=== PATIENT | female | born 1960 | race Caucasian/White ===

== ENCOUNTER → 2016-08-18 | Outpatient (CLI) | payer OTHER ==
[~2016-08-18] MED LIST: ACHD5005 PO; BIRTH CONTROL; CEFU250T PO; CIPR-226 PO; CPR500T; ESTRADIOL PO; HYDR-3874 PO; LEVO500T69 PO; LISI20TA PO; NITR-68 PO; Norflex PO; OLME20TA22 PO; TAMS0.4C98 PO; ZLP10T; ZOLP5TAB6 PO
--- OUTSIDE RECORDS SUMMARY | 2016-08-18 15:02 | XMS REPORT | Continuity of Care Document ---
Author Author [facility] Organization [facility] Address Unknown Phone Unavailable Allergies Active Description Code Type Severity Reaction Onset Reported/Identified Relationship to Patient Clinical Status Yes No Known Drug Allergies [id number] Drug Allergy Mild N/A 07/13/2009 Yes nifedipine [id number] Drug Allergy Unknown N/A 10/13/2014 Yes DOXYCYLINE DOXYCYLINE Mild N/A 10/06/2015 Yes meperidine [id number] Drug Allergy Unknown N/A 10/21/2015 Medications Problems Date Dx Coded Attending Type Code Diagnosis Diagnosed By 01/25/2011 Ot 922.1 CONTUSION OF CHEST WALL 01/25/2011 Ot 923.21 CONTUSION OF WRIST 01/25/2011 Ot 959.11 OTH INJURY OF CHEST WALL 01/25/2011 Ot E000.8 OTHER EXTERNAL CAUSE STATUS 01/25/2011 Ot E849.0 ACCIDENT IN HOME 01/25/2011 Ot E885.9 FALL FROM SLIPPING, TRIPPING, OR STUMBLI 05/28/2014 Ot 793.80 05/28/2014 Ot 793.81 05/28/2014 Ot 793.81 05/28/2014 Ot V76.12 05/28/2014 Ot 729.5 05/28/2014 Ot V76.12 05/28/2014 RUBIN PEREZ MD Ot V76.12 06/16/2014 RUBIN PEREZ MD Ot V76.12 10/15/2014 JANELL WAYNE MD Ot 276.51 DEHYDRATION 10/15/2014 TONE SQUIRES, JANELL Velasquez Ot 401.9 HYPERTENSION NOS 10/15/2014 JANELL WAYNE MD Ot 427.89 CARDIAC DYSRHYTHMIAS NEC 10/15/2014 JANELL WAYNE MD Ot 611.0 INFLAM DISEASE OF BREAST 10/15/2014 JANELL WAYNE MD Ot 780.2 SYNCOPE AND COLLAPSE 10/15/2014 JANELL WAYNE MD Ot 780.60 FEVER, UNSPECIFIED 10/15/2014 TONE SQUIRES, JANELL Velasquez Ot 790.5 ABN SERUM ENZY LEVEL NEC 10/15/2014 TONE SQUIRES, JANELL Velasquez Ot 989.5 TOXIC EFFECT VENOM 10/15/2014 TONE SQUIRES, JANELL Velasquez Ot E905.1 VENOMOUS SPIDER BITE 10/30/2014 Ot 793.81 10/30/2014 Ot 793.81 10/30/2014 Ot V76.12 10/30/2014 Ot 729.5 10/30/2014 Ot V76.12 10/30/2014 ANA SQUIRES, RUBIN Morales Ot V76.12 10/30/2014 ANA SQUIRES, RUBIN Morales Ot V76.12 11/22/2014 Ot 793.81 11/22/2014 Ot V76.12 11/22/2014 Ot 729.5 11/22/2014 Ot V76.12 11/22/2014 ANA SQUIRES, RUBIN Morales Ot V76.12 11/22/2014 ANA SQUIRES, RUBIN Morales Ot V76.12 11/22/2014 VIJI ELDRIDGE NAILING MACHINE FEEDER Ot 786.59 02/12/2015 TONE SQUIRES, JANELL Velasquez Ot 719.46 02/23/2015 TONE SQUIRES, JANELL Velasquez Ot 719.46 04/08/2015 REAL SERNA NAILING MACHINE FEEDER Ot R11.0 NAUSEA 04/08/2015 REAL SERNA NAILING MACHINE FEEDER Ot Z98.89 OTHER SPECIFIED POSTPROCEDURAL STATES 06/08/2015 ANA SQUIRES, RUBIN Morales Ot Z12.31 06/23/2015 ANA SQUIRES, RUBIN Morales Ot Z12.31 06/25/2015 REAL SERNA NAILING MACHINE FEEDER Ot N39.0 URINARY TRACT INFECTION, SITE NOT SPECIF 10/06/2015 Ot V76.12 10/06/2015 Ot 729.5 10/06/2015 Ot V76.12 10/06/2015 ANA SQUIRES, RUBIN Morales Ot V76.12 10/06/2015 ANA SQUIRES, RUBIN Morales Ot V76.12 10/06/2015 VIJI ELDRIDGE NAILING MACHINE FEEDER Ot 786.59 10/06/2015 TONE SQUIRES, JANELL Velasquez Ot 719.46 10/06/2015 ANA SQUIRES, RUBIN Morales Ot Z12.31 10/06/2015 RENE DUNLAP DO Ot N13.2 HYDRONEPHROSIS WITH RENAL AND URETERAL C 10/06/2015 RENE DUNLAP DO Ot N39.0 URINARY TRACT INFECTION, SITE NOT SPECIF 10/08/2015 GERMÁN RENE LARKIN Ot N13.2 10/08/2015 RENE DUNLAP DO Ot N39.0 10/13/2015 Ot V76.12 OTH SCREEN MAMMO-MALIGN NEOPLASM OF [place] 10/13/2015 Ot 729.5 PAIN IN LIMB 10/13/2015 Ot V76.12 OTH SCREEN MAMMO-MALIGN NEOPLASM OF [place] 10/13/2015 ANA SQUIRES, RUBIN Morales Ot V76.12 OTH SCREEN MAMMO-MALIGN NEOPLASM OF [place] 10/13/2015 RUBIN PEREZ MD Ot V76.12 OTH SCREEN MAMMO-MALIGN NEOPLASM OF [place] 10/13/2015 VIJI ELDRIDGE N NAILING MACHINE FEEDER Ot 786.59 CHEST PAIN NEC 10/13/2015 JANELL WAYNE MD Ot 719.46 JOINT PAIN-L/LEG 10/13/2015 RUBIN PEREZ MD Ot Z12.31 ENCNTR SCREEN MAMMOGRAM FOR MALIGNANT NE 10/14/2015 ASHLEY HAWKINS MD Ot N20.1 CALCULUS OF URETER 10/21/2015 ASHLEY HAWKINS MD Ot N20.1 CALCULUS OF URETER 10/21/2015 ASHLEY HAWKINS MD Ot Z11.2 ENCOUNTER FOR SCREENING FOR OTHER BACTER 10/22/2015 ASHLEY HAWKINS MD Ot N20.1 CALCULUS OF URETER 10/22/2015 ASHLEY HAWKINS MD Ot Z11.2 ENCOUNTER FOR SCREENING FOR OTHER BACTER 10/22/2015 ASHLEY HAWKINS MD Ot N20.1 CALCULUS OF URETER 10/22/2015 ASHLEY HAWKINS MD Ot Z11.2 ENCOUNTER FOR SCREENING FOR OTHER BACTER 10/27/2015 ASHLEY HAWKINS MD Ot N20.1 CALCULUS OF URETER 10/27/2015 ASHLEY HAWKINS MD Ot Z11.2 ENCOUNTER FOR SCREENING FOR OTHER BACTER 10/29/2015 ASHLEY HAWKINS MD Ot N20.1 CALCULUS OF URETER 10/29/2015 ASHLEY HAWKINS MD Ot Z98.89 OTHER SPECIFIED POSTPROCEDURAL STATES 11/18/2015 ASHLEY HAWKINS MD Ot N20.1 CALCULUS OF URETER 11/18/2015 ASHLEY HAWKINS MD Ot Z11.2 ENCOUNTER FOR SCREENING FOR OTHER BACTER 11/19/2015 ASHLEY HAWKINS MD Ot N20.1 CALCULUS OF URETER 11/19/2015 ASHLEY HAWKINS MD Ot Z11.2 ENCOUNTER FOR SCREENING FOR OTHER BACTER 11/24/2015 ASHLEY HAWKINS MD Ot N20.1 CALCULUS OF URETER 11/24/2015 ASHLEY HAWKINS MD Ot Z11.2 ENCOUNTER FOR SCREENING FOR OTHER BACTER 11/27/2015 ASHLEY HAWKINS MD Ot N20.1 CALCULUS OF URETER 11/27/2015 ASHLEY HAWKINS MD Ot Z98.89 OTHER SPECIFIED POSTPROCEDURAL STATES 12/03/2015 ASHLEY HAWKINS MD Ot N20.1 CALCULUS OF URETER 12/03/2015 ASHLEY HAWKINS MD Ot Z98.89 OTHER SPECIFIED POSTPROCEDURAL STATES 12/04/2015 ASHLEY HAWKINS MD Ot N20.1 CALCULUS OF URETER 12/04/2015 ASHLEY HAWKINS MD Ot Z98.89 OTHER SPECIFIED POSTPROCEDURAL STATES 12/08/2015 ASHLEY HAWKINS MD Ot N20.1 CALCULUS OF URETER 12/08/2015 ASHLEY HAWKINS MD Ot Z98.89 OTHER SPECIFIED POSTPROCEDURAL STATES 03/07/2016 ASHLEY HAWKINS MD Ot N20.0 CALCULUS OF KIDNEY 03/08/2016 ASHLEY HAWKINS MD Ot N20.0 CALCULUS OF KIDNEY Procedures Results Encounters ACCT No. Visit Date/Time Discharge Status Pt. Type Provider Facility Loc./Unit Complaint [id number] 12/18/2015 06:37:00 2015 00:01:00 DIS Outpatient ASHLEY HAWKINS MD [facility] LAB RENAL STONE [id number] 11/18/2015 06:54:00 2015 13:10:00 DIS Outpatient ASHLEY HAWKINS MD [facility] [id number] 11/16/2015 05:38:00 2015 11:49:00 DIS Outpatient ASHLEY HAWKINS MD [facility] PREOP [id number] 10/21/2015 05:52:00 2015 10:15:00 DIS Outpatient ASHLEY HAWKINS MD [facility] [id number] 10/15/2015 05:51:00 2015 13:22:00 DIS Outpatient ASHLEY HAWKINS MD [facility] PREOP [id number] 10/06/2015 01:49:00 2015 05:16:00 DIS Emergency RENE DUNLAP DO [facility] ER [id number] 06/25/2015 17:04:00 2014 18:47:00 DIS Emergency REAL [employer]NA NAILING MACHINE FEEDER [facility] ER [id number] 04/08/2015 20:40:00 2014 22:03:00 DIS Emergency REAL [employer] NAILING MACHINE FEEDER [facility] ER [id number] 02/09/2015 14:02:00 2014 23:59:59 CLS Outpatient JANELL WAYNE MD [facility] RAD [id number] 10/30/2014 12:15:00 2014 23:59:59 CLS Outpatient VIJI ELDRIDGE NAILING MACHINE FEEDER [facility] RAD [id number] 10/13/2014 08:17:00 2014 10:25:00 DIS Inpatient JANELL WAYNE MD [facility] 4TH [id number] 05/28/2014 15:21:00 2013 23:59:59 CLS Outpatient RUBIN PEREZ MD [facility] RAD [id number] 04/26/2013 15:02:00 2012 23:59:59 CLS Outpatient RUBIN PEREZ MD [facility] RAD [id number] 03/08/2016 00:10:00 PEN Preadmit ROSS SQUIRES, ASHLEY Riley [facility] LAB RENAL STONE [id number] 12/02/2015 08:40:00 ACT Outpatient ROSS SQUIRES, ASHLEY Riley [facility] RAD [id number] 10/28/2015 08:16:00 ACT Outpatient ROSS SQUIRES, ASHLEY Riley [facility] RAD [id number] 10/13/2015 10:57:00 ACT Outpatient ROSS SQUIRES, ASHLEY Riley [facility] RAD [id number] 06/04/2015 15:11:00 ACT Outpatient ANA SQUIRES, RUBIN Morales [facility] RAD [id number] 05/28/2014 15:21:00 Document Registration [id number] 05/28/2014 15:21:00 Document Registration [id number] 04/17/2012 15:12:00 Document Registration [id number] 10/12/2011 13:24:00 Document Registration [id number] 03/10/2011 14:57:00 Document Registration [id number] 01/25/2011 15:03:00 Document Registration [id number] 12/29/2009 15:00:00 Document Registration [id number] 06/01/2009 14:37:00 Document Registration [id number] 12/09/2008 14:39:00 Document Registration
--- NOTE | 2016-08-18 19:46 | Diagnostic Imaging Report ---
Digital mammogram bilateral screening This study was compared to the prior exams of 06/04/15, 05/28/14, and 04/26/13. At this time, there are no current complaints. The current study was also evaluated with a Computer Aided Detection (CAD) system. FINDINGS: There are scattered fibroglandular densities in both breasts which could obscure a lesion. Overall, there does not appear to have been any significant change when compared to the prior exam. No primary or secondary sign of malignancy is noted. IMPRESSION: There is no radiographic evidence for malignancy. ACR BI-RADS Category 1: Negative. Result letter will be mailed to the patient. Note: At least 10% of breast cancer is not imaged by mammography. Dictated by: Dictated on workstation # [id number]
== END ==
LOC: RAD 14:59
PROVIDERS: ATTEND Obstetrics & Gynecology
DX: Z12.31 Encounter for screening mammogram for malignant neoplasm of breast (principal)
CPT/HCPCS: 77067

== ENCOUNTER 2017-05-12 15:10 | Outpatient (RCR) | payer OTHER | END 2017-06-13 16:02 | disposition home or self-care (01) | PROVIDERS: ATTEND Orthopaedic Surgery | DX: Z47.89 Encounter for other orthopedic aftercare (principal) ==

== ENCOUNTER → 2017-08-21 | Outpatient (CLI) | payer OTHER ==
[~2017-08-21] MED LIST changes: +HYDR-3870 PO; -HYDR-3874 PO; +OLME20TA21 PO; -OLME20TA22 PO
--- NOTE | 2017-08-21 19:40 | Diagnostic Imaging Report ---
Digital mammogram bilateral screening. The study was compared to the prior exams of 08/18/2016 and 06/04/2015. At this time, there are no current complaints. The current study was also evaluated with a Computer Aided Detection (CAD) system. FINDINGS: There are scattered fibroglandular densities in both breasts which could obscure a lesion. Overall, there does not appear to have been any significant change when compared to the prior exam. No primary or secondary sign of malignancy is noted. IMPRESSION: There is no radiographic evidence for malignancy. ACR BI-RADS Category 1: Negative. Result letter will be mailed to the patient. Note: At least 10% of breast cancer is not imaged by mammography. Dictated on workstation # [id number]
== END ==
LOC: RAD 15:02
PROVIDERS: ATTEND Obstetrics & Gynecology
DX: Z12.31 Encounter for screening mammogram for malignant neoplasm of breast (principal)
CPT/HCPCS: 77067

== ENCOUNTER 2017-12-06 21:02 | Emergency (ER) | payer OTHER ==
[~2017-12-06] VITALS: Ht 157.5 cm; Wt 70.3 kg
--- OUTSIDE RECORDS SUMMARY | 2017-12-06 21:06 | XMS REPORT | Continuity of Care Document ---
Author Author [facility] Organization [facility] Address Unknown Phone Unavailable Allergies Active Description Code Type Severity Reaction Onset Reported/Identified Relationship to Patient Clinical Status Yes No Known Drug Allergies [id number] Drug Allergy Mild N/A 07/13/2009 Yes nifedipine [id number] Drug Allergy Unknown N/A 10/13/2014 Yes DOXYCYLINE DOXYCYLINE Mild N/A 10/06/2015 Yes meperidine [id number] Drug Allergy Unknown N/A 10/21/2015 Medications There is no data. Problems Date Dx Coded Attending Type Code [...] JANELL WAYNE MD Ot 276.51 DEHYDRATION 10/15/2014 JANELL WAYNE MD Ot 401.9 HYPERTENSION NOS 10/15/2014 JANELL WAYNE [...] RUBIN Morales Ot V76.12 11/22/2014 VIJI ELDRIDGE RETAIL PROJECT MERCHANDISER Ot 786.59 02/12/2015 TONE SQUIRES, JANELL Velasquez Ot 719.46 02/23/2015 TONE SQUIRES, JANELL Velasquez Ot 719.46 04/08/2015 REAL SERNA RETAIL PROJECT MERCHANDISER Ot R11.0 NAUSEA 04/08/2015 REAL SERNA RETAIL PROJECT MERCHANDISER Ot Z98.89 OTHER SPECIFIED POSTPROCEDURAL STATES 06/08/2015 ANA SQUIRES, RUBIN Morales Ot Z12.31 06/23/2015 ANA SQUIRES, RUBIN Morales Ot Z12.31 06/25/2015 REAL SERNA RETAIL PROJECT MERCHANDISER Ot N39.0 URINARY TRACT INFECTION, SITE NOT SPECIF 10/06/2015 Ot V76.12 10/06/2015 Ot 729.5 10/06/2015 Ot V76.12 10/06/2015 RUBIN EPREZ MD Ot V76.12 10/06/2015 ANA SQUIRES, RUBIN Morales Ot V76.12 10/06/2015 VIJI ELDRIDGE RETAIL PROJECT MERCHANDISER Ot 786.59 10/06/2015 JANELL WAYNE MD Ot 719.46 10/06/2015 ANA SQUIRES, RUBIN Morales Ot Z12.31 10/06/2015 GERMÁN RENE LARKIN Ot N13.2 HYDRONEPHROSIS WITH RENAL AND URETERAL C 10/06/2015 GERMÁNRENE RAMON DO Ot N39.0 URINARY TRACT INFECTION, SITE [...] NEOPLASM OF [place] 10/13/2015 VIJI ELDRIDGE N RETAIL PROJECT MERCHANDISER Ot 786.59 CHEST PAIN NEC 10/13/2015 TONE SQUIRES, JANELL Velasquez Ot 719.46 JOINT PAIN-L/LEG 10/13/2015 RUBIN PEREZ MD Ot Z12.31 ENCNTR SCREEN MAMMOGRAM FOR MALIGNANT NE 10/14/2015 ASHLEY HAWKINS MD Ot N20.1 CALCULUS OF URETER 10/15/2015 ASHLEY HAWKINS MD Ot N20.1 CALCULUS OF URETER 10/15/2015 ASHLEY HAWKINS MD Ot Z01.818 ENCOUNTER FOR OTHER PREPROCEDURAL EXAMIN 10/21/2015 ASHLEY HAWKINS MD Ot N20.1 CALCULUS [...] MD Ot Z98.89 OTHER SPECIFIED POSTPROCEDURAL STATES 11/16/2015 ASHLEY HAWKINS MD Ot N20.0 CALCULUS OF KIDNEY 11/16/2015 ASHLEY HAWKINS MD Ot Z01.818 ENCOUNTER FOR OTHER PREPROCEDURAL EXAMIN 11/18/2015 ASHLEY HAWKINS MD Ot N20.1 CALCULUS [...] MD Ot N20.0 CALCULUS OF KIDNEY 03/08/2016 ROSS MD, ASHLEY A Ot N20.0 CALCULUS OF KIDNEY 08/18/2016 Ot V76.12 OTH SCREEN MAMMO-MALIGN NEOPLASM OF [place] 08/18/2016 Ot 729.5 PAIN IN LIMB 08/18/2016 Ot V76.12 OTH SCREEN MAMMO-MALIGN NEOPLASM OF [place] 08/18/2016 RUBIN PEREZ MD, Ot V76.12 OTH SCREEN MAMMO-MALIGN NEOPLASM OF [place] 08/18/2016 RUBIN PEREZ MD Ot V76.12 OTH SCREEN MAMMO-MALIGN NEOPLASM OF [place] 08/18/2016 VIJI ELDRIDGE N RETAIL PROJECT MERCHANDISER Ot 786.59 CHEST PAIN NEC 08/18/2016 TONE SQUIRES, JANELL Velasquez Ot 719.46 JOINT PAIN-L/LEG 08/18/2016 RUBIN PEREZ MD, Ot Z12.31 ENCNTR SCREEN MAMMOGRAM FOR MALIGNANT NE 08/18/2016 ASHLEY HAWKINS MD Ot N20.1 CALCULUS OF URETER 08/18/2016 ASHLEY HAWKINS MD Ot N20.1 CALCULUS OF URETER 08/18/2016 ASHLEY HAWKINS MD Ot Z98.89 OTHER SPECIFIED POSTPROCEDURAL STATES 08/18/2016 ASHLEY HAWKINS MD Ot N20.1 CALCULUS OF URETER 08/18/2016 ASHLEY HAWKINS MD Ot Z98.89 OTHER SPECIFIED POSTPROCEDURAL STATES 08/18/2016 ASHLEY HAWKINS MD Ot N20.0 CALCULUS OF KIDNEY 08/19/2016 RUBIN PEREZ MD, Ot Z12.31 ENCNTR SCREEN MAMMOGRAM FOR MALIGNANT NE 08/24/2016 RUBIN PEREZ MD, Ot Z12.31 ENCNTR SCREEN MAMMOGRAM FOR MALIGNANT NE 05/04/2017 CANDIDA SANTILLAN DO Ot Z47.89 ENCOUNTER FOR OTHER ORTHOPEDIC AFTERCARE 08/21/2017 RUBIN PEREZ MD, Ot Z12.31 ENCNTR SCREEN MAMMOGRAM FOR MALIGNANT NE 08/21/2017 RUBIN PEREZ MD, Ot Z12.31 ENCNTR SCREEN MAMMOGRAM FOR MALIGNANT NE Procedures There is no data. Results There is no data. Encounters ACCT No. Visit Date/Time Discharge Status Pt. Type Provider Facility Loc./Unit Complaint [id number] 08/21/2017 15:02:00 08/21/2017 23:59:59 CLS Outpatient RUBIN PEREZ MD [facility] RAD ROUTINE SCREENING [id number] 05/12/2017 15:10:00 06/13/2017 16:02:00 DIS Outpatient JACQUE LARKINCANDIDA [facility] REHAB S/P LT TRIGGER FINGER [id number] 08/18/2016 14:59:00 08/18/2016 23:59:59 CLS Outpatient RUBIN PEREZ MD [facility] RAD SCREENING [id number] 03/08/2016 00:10:00 03/08/2016 23:59:59 CLS Preadmit ASHLEY HAWKINS MD [facility] LAB RENAL STONE [id number] 12/18/2015 06:37:00 03/07/2016 00:01:00 DIS Outpatient ASHLEY HAWKINS MD [facility] LAB RENAL STONE [id number] 12/02/2015 08:40:00 12/02/2015 23:59:59 CLS Outpatient ASHLEY HAWKINS MD [facility] RAD URETHRAL STONE [id number] 11/18/2015 06:54:00 11/18/2015 13:10:00 DIS Outpatient ASHLEY HAWKINS MD [facility] SDC LEFT STONE [id number] 11/16/2015 05:38:00 11/16/2015 11:49:00 DIS Outpatient ASHLEY HAWKINS MD [facility] PREOP LEFT STONE [id number] 10/28/2015 08:16:00 10/28/2015 23:59:59 CLS Outpatient ASHLEY HAWKINS MD [facility] RAD L URETHRAL STONE [id number] 10/21/2015 05:52:00 10/21/2015 10:15:00 DIS Outpatient ASHLEY HAWKINS MD [facility] SDC RIGHT PROXIMAL URETERAL STONE [id number] 10/15/2015 05:51:00 10/15/2015 13:22:00 DIS Outpatient ASHLEY HAWKINS MD [facility] PREOP RIGHT PROXIMAL URETERAL STONE [id number] 10/13/2015 10:57:00 10/13/2015 23:59:59 CLS Outpatient ASHLEY HAWKINS MD [facility] RAD STONE [id number] 10/06/2015 01:49:00 10/06/2015 05:16:00 DIS Emergency RENE DUNLAP DO [facility] ER N/V/D [id number] 06/25/2015 17:04:00 06/25/2015 18:47:00 DIS Emergency REAL [employer]NA RETAIL PROJECT MERCHANDISER [facility] ER BACK PAIN [id number] 06/04/2015 15:11:00 06/04/2015 23:59:59 CLS Outpatient RUBIN PEREZ MD [facility] RAD SCREENING [id number] 04/08/2015 20:40:00 04/08/2015 22:03:00 DIS Emergency REAL [employer]NA RETAIL PROJECT MERCHANDISER [facility] ER NAUSEA [id number] 02/09/2015 14:02:00 02/09/2015 23:59:59 CLS Outpatient JANELL WAYNE MD [facility] RAD KNEE PAIN [id number] 10/30/2014 12:15:00 10/30/2014 23:59:59 CLS Outpatient VIJI ELDRIDGE RETAIL PROJECT MERCHANDISER [facility] RAD RIB PAIN, CP [id number] 10/13/2014 08:17:00 10/15/2014 10:25:00 DIS Inpatient JANELL WAYNE MD [facility] 4TH NEAR SYNCOPE DEHYDRATION ELEVATED LIVER ENZYMES [id number] 05/28/2014 15:21:00 05/28/2014 23:59:59 CLS Outpatient RUBIN PEREZ MD [facility] RAD SCREENING [id number] 04/26/2013 15:02:00 04/26/2013 23:59:59 CLS Outpatient RUBIN PEREZ MD [facility] RAD ROUTINE [id number] 05/28/2014 15:21:00 Document Registration [id number] 05/28/2014 15:21:00 Document Registration [id number] 04/17/2012 15:12:00 Document Registration [id number] 10/12/2011 13:24:00 Document Registration [id number] 03/10/2011 14:57:00 Document Registration [id number] 01/25/2011 15:03:00 Document Registration [id number] 12/29/2009 15:00:00 Document Registration [id number] 06/01/2009 14:37:00 Document Registration [id number] 12/09/2008 14:39:00 Document Registration [id number] 01/27/2016 11:07:07 01/27/2016 23:59:59 [facility] Outpatient Carlos SQUIRES, Unruly Morales
[2017-12-06] MEDS: ONDANSETRON 4 MG/2 ML (SDV) Z0FRAN ONE (21:31)
[2017-12-06] MEDS ORDERED: NS IV 1000 ML 1,000 ML IV ONE (21:31)
[2017-12-06 21:39] LABS: BASOPHILS % (AUTO) 0 % (0-10); EOSINOPHILS # (AUTO) 0.1 10^3/uL (0.0-0.3); EOSINOPHILS % (AUTO) 1 % (0-10); HEMATOCRIT 43 % (35-52); HEMOGLOBIN 14.8 G/DL (11.5-16.0); LYMPHOCYTES # (AUTO) 1.3 X 10^3 (1.0-4.0); LYMPHOCYTES % (AUTO) 7 % (12-44); MEAN CORPUSCULAR HEMOGLOBIN 31 PG (25-34); MEAN CORPUSCULAR HGB CONC 34 G/DL (32-36); MEAN CORPUSCULAR VOLUME 91 FL (80-99); MEAN PLATELET VOLUME 8.9 FL (7.4-10.4); MONOCYTES % (AUTO) 6 % (0-12); NEUTROPHILS # (AUTO) 15.2 X 10^3 (1.8-7.8); NEUTROPHILS % (AUTO) 87 % (42-75); PLATELET COUNT 321 10^3/uL (130-400); RED BLOOD COUNT 4.75 10^6/uL (4.35-5.85); RED CELL DISTRIBUTION WIDTH 13.7 % (10.0-14.5); WHITE BLOOD COUNT 17.6 10^3/uL (4.3-11.0)
[2017-12-06] MEDS ORDERED: ONDANSETRON 4 MG/2 ML (SDV) Z0FRAN IVP ONE (21:45)
[2017-12-06 21:56] LABS: BAND NEUTROPHILS 1 %; BASOPHILS % (MANUAL) 0 %; EOSINOPHILS % (MANUAL) 1 %; LYMPHOCYTES % (MANUAL) 14 %; MONOCYTES % (MANUAL) 1 %; NEUTROPHILS % (MANUAL) 83 %; PLATELET CLUMPS OCCASIONAL; RBC MORPH NORMAL
[2017-12-06 22:00] LABS: ALBUMIN 4.5 GM/DL (3.2-4.5); BILIRUBIN,TOTAL 0.5 MG/DL (0.1-1.0); CALCIUM 10.2 MG/DL (8.5-10.1); CREATININE SERUM 1.49 MG/DL (0.60-1.30); POTASSIUM 4.1 MMOL/L (3.6-5.0); TOTAL PROTEIN 8.2 GM/DL (6.4-8.2)
[2017-12-06] MEDS ORDERED: PROMETHAZINE INJ 25 MG/ML (PHENERGAN) AMP ONE (22:21)
[2017-12-06] MEDS ORDERED: PROMETHAZINE INJ 25 MG/ML (PHENERGAN) AMP IVP ONE (22:30)
[2017-12-06 22:42] LABS: BILIRUBIN,URINE NEGATIVE (NEGATIVE); CLARITY,URINE CLEAR; COLOR,URINE AMBER; GLUCOSE, URINE (UA) NEGATIVE (NEGATIVE); KETONES,URINE 2+ (NEGATIVE); LEUKOCYTE ESTERASE ,URINE 2+ (NEGATIVE); NITRITE,URINE NEGATIVE (NEGATIVE); PH,URINE 6 (5-9); PROTEIN,URINE 1+ (NEGATIVE); UROBILINOGEN,URINE NORMAL (NORMAL)
[2017-12-06 22:51] LABS: BACTERIA,URINE TRACE /HPF
[2017-12-06] MEDS ORDERED: LACTATED RINGERS 1,000 ML IV ONE ×2 (22:59→23:01)
[2017-12-06] MEDS ORDERED: cefTRIAXone INJECTION 1,000 MG in NS (IVPB) 50 ML IV ONE (23:00)
--- NOTE | 2017-12-06 23:47 | ED GI ---
General Chief Complaint: Abdominal/GI Problems Stated Complaint: CANT STOP THROWING UP SINCE 6 PM TODAY Source of Information: Patient Exam Limitations: No Limitations History of Present Illness Date Seen by Provider: Dec 06, 2017 Time Seen by Provider: 21:24 Initial Comments This 57-year-old woman presents to the emergency room with intractable vomiting that started around 18:00. She is also had a small amount of diarrhea. She denies any fever. Allergies and Home Medications Allergies Coded Allergies: meperidine (Verified Allergy, Unknown, 10/21/15) nifedipine (Verified Allergy, Unknown, 10/13/14) Uncoded Allergies: DOXYCYLINE (Allergy, Mild, 10/06/15) Home Medications Cephalexin 500 Mg Capsule, 500 MG PO QID Prescribed by: NILDA GUIDO on 12/06/17 2349 Hydrocodone/Acetaminophen 1 Each Tablet, 1-2 EACH PO Q4H PRN for PAIN Prescribed by: MELLISA CHASE on 11/18/15 1228 Nitrofurantoin Macrocrystal 100 Mg Capsule, 100 MG PO BID WITH MEALS Prescribed by: MELLISA CHASE on 11/18/15 1228 Olmesartan Medoxomil 20 Mg Tablet, 10 MG PO DAILY, (Reported) Promethazine HCl 25 Mg Tablet, 12.5-25 MG PO Q6H PRN for NAUSEA/VOMITING Prescribed by: NILDA GUIDO on 12/06/17 2349 Tamsulosin HCl 0.4 Mg Cap, 0.4 MG PO DAILY Prescribed by: MELLISA CHASE on 11/18/15 1228 Patient Home Medication List Home Medication List Reviewed: Yes Review of Systems Constitutional: no symptoms reported EENTM: No Symptoms Reported Respiratory: No Symptoms Reported Cardiovascular: No Symptoms Reported Gastrointestinal: See HPI Genitourinary: No Symptoms Reported Musculoskeletal: no symptoms reported Skin: no symptoms reported Psychiatric/Neurological: No Symptoms Reported Endocrine: No Symptoms Reported Past Kebunyd-Ahnvmh-Qfqqkb Hx Past Med/Social Hx: Reviewed and Corrections made Patient Social History Recent Foreign Travel: No Contact w/Someone Who Travel: No Immunizations Up To Date Tetanus Booster (TDap): More than 5yrs PED Vaccines UTD: Yes Date of Influenza Vaccine: Mar 26, 2015 Past Medical History Surgeries: Yes Abdominal (Colon resection to treat ulcerative colitis), Gallbladder, Orthopedic Respiratory: No Cardiac: Yes Hypertension Neurological: No : No Reproductive Disorders: No Female Reproductive Disorders: Denies Sexually Transmitted Disease: No HIV/AIDS: No Genitourinary: Yes Kidney Stones, UTI-Chronic Gastrointestinal: Yes Colitis (History of ulcerative colitis status post colon resection) Musculoskeletal: No Endocrine: No HEENT: No Loss of Vision: Bilateral Hearing Impairment: Denies Skin Psychosocial: No Integumentary: No Family Medical History Reviewed Nursing Family Hx Cardiovascular disease (MOM AND DAD0.) Hypercholesterolemia (MOM) Hypertension (MOM, SISTER, BROTHER) Myocardial infarction (MOM AND DAD) No Family History of: AIDS Abdominal aortic aneurysm Galax's disease Alcoholism Alzheimer's disease Aphasia Arthritis Asthma Cancer of mouth Cataracts Colon cancer Completed stroke Congenital disease Congenital heart disease Coronary thrombosis Cystic fibrosis Deafness or hearing loss Dementia Diabetes mellitus Drug abuse Dysphasia Fibrocystic disease of breast Gastroenteritis Glaucoma Headache disorder Infertility Kidney disease Neoplasm Not obtainable due to adoption Osteoporosis Parkinson's disease Prostate cancer Psychosocial problem Respiratory disorder Seizure disorder Severe allergy Thyroid disease Tuberculosis Visual disorder CAD Over 55 Years Old, Hypertension Physical Exam Vital Signs Vital Signs - First Documented 12/06/17 21:16 Temp 97.3 Pulse 106 Resp 20 B/P (MAP) 131/82 (98) Pulse Ox 98 O2 Delivery Room Air Capillary Refill : General Appearance: WD/WN, mild distress HEENT: PERRL/EOMI, normal ENT inspection Neck: normal inspection Respiratory: lungs clear, normal breath sounds, no respiratory distress, no accessory muscle use Cardiovascular: regular rate, rhythm, no edema, no murmur Gastrointestinal: normal bowel sounds, non tender, soft Extremities: normal inspection, no pedal edema Neurologic/Psychiatric: 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 as tested, no motor/sensory deficits, alert, normal mood/affect, oriented x 3 Skin: normal color, warm/dry Progress/Results/Core Measures Results/Orders Lab Results Laboratory Tests Test 12/06/17 21:30 12/06/17 22:33 Range/Units White Blood Count 17.6 H 4.3-11.0 10^3/uL Red Blood Count 4.75 4.35-5.85 10^6/uL Hemoglobin 14.8 11.5-16.0 G/DL Hematocrit 43 35-52 % Mean Corpuscular Volume 91 80-99 FL Mean Corpuscular Hemoglobin 31 25-34 PG Mean Corpuscular Hemoglobin Concent 34 32-36 G/DL Red Cell Distribution Width 13.7 10.0-14.5 % Platelet Count 321 130-400 10^3/uL Mean Platelet Volume 8.9 7.4-10.4 FL Neutrophils (%) (Auto) 87 H 42-75 % Lymphocytes (%) (Auto) 7 L 12-44 % Monocytes (%) (Auto) 6 0-12 % Eosinophils (%) (Auto) 1 0-10 % Basophils (%) (Auto) 0 0-10 % Neutrophils # (Auto) 15.2 H 1.8-7.8 X 10^3 Lymphocytes # (Auto) 1.3 1.0-4.0 X 10^3 Monocytes # (Auto) 1.0 0.0-1.0 X 10^3 Eosinophils # (Auto) 0.1 0.0-0.3 10^3/uL Basophils # (Auto) 0.0 0.0-0.1 10^3/uL Neutrophils % (Manual) 83 % Lymphocytes % (Manual) 14 % Monocytes % (Manual) 1 % Eosinophils % (Manual) 1 % Basophils % (Manual) 0 % Band Neutrophils 1 % Clumped Platelets OCCASIONAL Blood Morphology Comment NORMAL Sodium Level 139 135-145 MMOL/L Potassium Level 4.1 3.6-5.0 MMOL/L Chloride Level 105 98-107 MMOL/L Carbon Dioxide Level 17 L 21-32 MMOL/L Anion Gap 17 H 5-14 MMOL/L Blood Urea Nitrogen 21 H 7-18 MG/DL Creatinine 1.49 H 0.60-1.30 MG/DL Estimat Glomerular Filtration Rate 36 BUN/Creatinine Ratio 14 Glucose Level 129 H 70-105 MG/DL Calcium Level 10.2 H 8.5-10.1 MG/DL Total Bilirubin 0.5 0.1-1.0 MG/DL Aspartate Amino Transf (AST/SGOT) 19 5-34 U/L Alanine Aminotransferase (ALT/SGPT) 17 0-55 U/L Alkaline Phosphatase 90 40-136 U/L Total Protein 8.2 6.4-8.2 GM/DL Albumin 4.5 3.2-4.5 GM/DL Urine Color ISABELL H Urine Clarity CLEAR Urine pH 6 5-9 Urine Specific [place] 1.025 H 1.016-1.022 Urine Protein 1+ H NEGATIVE Urine Glucose (UA) NEGATIVE NEGATIVE Urine Ketones 2+ H NEGATIVE Urine Nitrite NEGATIVE NEGATIVE Urine Bilirubin NEGATIVE NEGATIVE Urine Urobilinogen NORMAL NORMAL MG/DL Urine Leukocyte Esterase 2+ H NEGATIVE Urine RBC (Auto) NEGATIVE NEGATIVE Urine RBC NONE /HPF Urine WBC 5-10 H /HPF Urine Squamous Epithelial Cells 2-5 /HPF Urine Crystals NONE /LPF Urine Bacteria TRACE /HPF Urine Casts NONE /LPF Urine Mucus SMALL H /LPF Urine Culture Indicated YES My Orders Orders - NILDA MCKEON MD Ondansetron Injection (Zofran Injectio (12/06/17 21:24) Cbc With Automated Diff (12/06/17 21:31) Comprehensive Metabolic Panel (12/06/17 21:31) Ua Culture If Indicated (12/06/17 21:31) Saline Lock/Iv-Start (12/06/17 21:31) Ns Iv 1000 Ml (Sodium Chloride 0.9%) (12/06/17 21:31) Ondansetron Injection (Zofran Injectio (12/06/17 21:45) Manual Differential (12/06/17 21:30) Promethazine Injection (Phenergan Injec (12/06/17 22:30) Promethazine Injection (Phenergan Injec (12/06/17 22:21) Urine Culture (12/06/17 22:33) Ceftriaxone Injection (Rocephin Injectio (12/06/17 23:00) Lactated Ringers (Lr 1000 Ml Iv Solution (12/06/17 22:59) Saline Lock/Iv-Start (12/06/17 23:01) Lactated Ringers (Lr 1000 Ml Iv Solution (12/06/17 23:01) Medications Given in ED Current Medications Medications Dose Ordered Sig/Jai Route Start Time Stop Time Status Last Admin Dose Admin Ceftriaxone Sodium 1000 mg/ Sodium Chloride 50 ml @ 100 mls/hr ONCE ONCE IV 12/06/17 23:00 12/06/17 23:29 DC 12/06/17 23:08 100 MLS/HR Lactated Ringer's 1,000 ml @ 0 mls/hr Q0M ONCE IV 12/06/17 23:01 12/06/17 23:02 DC 12/06/17 23:07 1,000 MLS/HR Ondansetron HCl 4 mg STK-MED ONCE .ROUTE 12/06/17 21:24 12/06/17 21:25 DC 12/06/17 21:31 8 MG Promethazine HCl 12.5 mg ONCE ONCE IVP 12/06/17 22:30 12/06/17 22:31 DC 12/06/17 22:23 12.5 MG Sodium Chloride 1,000 ml @ 0 mls/hr Q0M ONCE IV 12/06/17 21:31 12/06/17 21:32 DC 12/06/17 21:58 1,000 MLS/HR Vital Signs/I&O 12/06/17 12/07/17 21:16 01:33 Temp 97.3 Pulse 106 98 Resp 20 20 B/P (MAP) 131/82 (98) 122/75 Pulse Ox 98 96 O2 Delivery Room Air Progress Progress Note : Progress Note Patient was treated with Zofran and a liter of IV fluid. She still had intractable nausea and gagging after Zofran. She was additionally treated with Phenergan. A second liter of IV fluids was ordered. UA demonstrated some evidence of urinary tract infection. A gram of Rocephin was administered. Departure Impression Primary Impression: Nausea and vomiting Qualified Codes: R11.2 - Nausea with vomiting, unspecified Additional Impression: Urinary tract infection Qualified Codes: N39.0 - Urinary tract infection, site not specified Disposition: 01 HOME, SELF-CARE Condition: Improved Departure-Patient Inst. Decision time for Depature: 23:40 Referrals: JANELL WAYNE MD (PCP/Family) Primary Care Physician Patient Instructions: Urinary Tract Infection, Adult (DC) Add. Discharge Instructions: Drink plenty of clear liquids. Gradually advance your diet with small quantities of bland food as tolerated. Dissolve Zofran under the tongue every 4 hours as needed for nausea and vomiting. Use Phenergan for nausea and vomiting not controlled by Zofran. Complete your antibiotics as prescribed. Follow-up on urine culture results in 48 hours. Return to the emergency room if symptoms worsen. All discharge instructions reviewed with patient and/or family. Voiced understanding. Scripts Promethazine HCl (Promethazine Tablet) 25 Mg Tablet 12.5-25 MG PO Q6H PRN for NAUSEA/VOMITING, #10 TAB Prov: NILDA MCKEON MD 12/06/17 Cephalexin (Keflex) 500 Mg Capsule 500 MG PO QID, #28 CAP Prov: NILDA MCKEON MD 12/06/17 NILDA MKCEON MD Dec 06, 2017 23:46
[2017-12-06] MEDS ORDERED: PROM25TA14 PO (23:49)
[2017-12-06] MEDS ORDERED: CEPH-507 PO (23:49)
[2017-12-07 01:33] VITALS: BP 122/75
== END 2017-12-07 01:33 | disposition home or self-care (01) ==
LOC: EDUNIT# 21:02 → ER 21:03
DX: N39.0 Urinary tract infection, site not specified (principal); R11.2 Nausea with vomiting, unspecified; I10 Essential (primary) hypertension; Z87.442 Personal history of urinary calculi; Z87.19 Personal history of other diseases of the digestive system; Z98.890 Other specified postprocedural states; Z88.6 Allergy status to analgesic agent; Z88.5 Allergy status to narcotic agent
CPT/HCPCS: 36415; 80053; 81000; 85007; 85027; 87077; 87088; 96361; 96365; 96375

== ENCOUNTER → 2017-12-22 | Outpatient (CLI) | payer OTHER ==
[~2017-12-22] MED LIST changes: +CEPH-507 PO; +PROM25TA14 PO
--- NOTE | 2017-12-22 13:05 | Diagnostic Imaging Report ---
INDICATION: All over chest bruising from fall about 7 years ago. Continued tenderness.. TECHNIQUE: 4 radiographs, total of bilateral ribs, 10:37 AM. CORRELATION STUDY: None FINDINGS: There is the presence of deformities of bilateral ribs, likely owing to prior rib fracture deformities. An acute bony abnormality is not demonstrated. Chronic appearing changes about the lung mccurdy. IMPRESSION: 1. Negative for acute displaced rib fracture. Findings compatible with prior bilateral rib fractures. Dictated by: Dictated on workstation # [id number]
== END ==
LOC: RAD 10:06
DX: S20.219A Contusion of unspecified front wall of thorax, initial encounter (principal)
CPT/HCPCS: 71110

== ENCOUNTER → 2018-01-16 | Outpatient (CLI) | payer OTHER ==
[2018-01-16 07:35] LABS: BASOPHILS % (AUTO) 0 % (0-10); EOSINOPHILS # (AUTO) 0.2 10^3/uL (0.0-0.3); EOSINOPHILS % (AUTO) 3 % (0-10); HEMATOCRIT 39 % (35-52); HEMOGLOBIN 13.2 G/DL (11.5-16.0); LYMPHOCYTES # (AUTO) 2.1 X 10^3 (1.0-4.0); LYMPHOCYTES % (AUTO) 24 % (12-44); MEAN CORPUSCULAR HEMOGLOBIN 31 PG (25-34); MEAN CORPUSCULAR HGB CONC 34 G/DL (32-36); MEAN CORPUSCULAR VOLUME 92 FL (80-99); MEAN PLATELET VOLUME 8.8 FL (7.4-10.4); MONOCYTES # (AUTO) 0.7 X 10^3 (0.0-1.0); MONOCYTES % (AUTO) 8 % (0-12); NEUTROPHILS # (AUTO) 5.7 X 10^3 (1.8-7.8); NEUTROPHILS % (AUTO) 66 % (42-75); PLATELET COUNT 287 10^3/uL (130-400); RED BLOOD COUNT 4.26 10^6/uL (4.35-5.85); RED CELL DISTRIBUTION WIDTH 13.5 % (10.0-14.5); WHITE BLOOD COUNT 8.8 10^3/uL (4.3-11.0)
== END ==
LOC: LAB 07:19
DX: D72.1 Eosinophilia (principal)
CPT/HCPCS: 36415; 85025

== ENCOUNTER → 2018-08-23 | Outpatient (CLI) | payer OTHER ==
--- NOTE | 2018-08-24 20:10 | Diagnostic Imaging Report ---
Digital mammogram bilateral screening with 3D tomosynthesis. The current study was also evaluated with a Computer Aided Detection (CAD) system. INDICATION: Screening. FINDINGS: This study was compared to the prior exams of 08/21/2017, 08/18/2016, and 06/04/2015. At this time, there are no current complaints. FINDINGS: There are scattered fibroglandular densities in both breasts which could obscure a lesion. When compared to the prior study, there has been no significant change. There is no primary or secondary sign of malignancy noted. The 3D tomographic views also fail to show any sign of malignancy. IMPRESSION: There is no evidence of malignancy. ACR BI-RADS Category 1: Negative. Result letter will be mailed to the patient. Note: At least 10% of breast cancer is not imaged by mammography. Dictated on workstation # [id number]
== END ==
LOC: RAD 14:53
PROVIDERS: ATTEND Obstetrics & Gynecology
DX: Z12.31 Encounter for screening mammogram for malignant neoplasm of breast (principal)
CPT/HCPCS: 77067

== ENCOUNTER → 2019-08-07 | Outpatient (CLI) | payer OTHER ==
[~2019-08-07] MED LIST changes: -TAMS0.4C98 PO; +TMSL.4C PO
--- NOTE | 2019-08-07 15:28 | Diagnostic Imaging Report ---
INDICATION: Left leg pain. Left leg venous Doppler study was performed in the routine fashion with color flow Doppler and waveform analysis. FINDINGS: The left common femoral vein, superficial femoral vein, popliteal vein and visualized portion of the posterior tibial vein show normal compressibility and venous flow patterns. There is normal augmentation. IMPRESSION: No evidence of deep vein thrombosis of the major veins of the left leg. Dictated by: Dictated on workstation # [id number]
== END ==
LOC: RAD 14:50
DX: R22.42 Localized swelling, mass and lump, left lower limb (principal)

== ENCOUNTER → 2019-08-12 | Outpatient (REF) ==
--- NOTE | 2019-08-12 15:50 | Diagnostic Imaging Report ---
INDICATION: Groin pain. Three views were obtained. FINDINGS: Alignment is normal. There is no fracture or dislocation. Soft tissues are unremarkable. IMPRESSION: No acute fracture or dislocation. Dictated by: Dictated on workstation # [id number]
== END | disposition home or self-care (01) ==
LOC: OCC 15:18
PROVIDERS: ATTEND Nurse Practitioner Family

== ENCOUNTER → 2019-08-16 | Outpatient (REF) ==
--- NOTE | 2019-08-16 09:47 | Diagnostic Imaging Report ---
PROCEDURE: MRI left joint lower extremity without contrast. TECHNIQUE: Multiplanar, multisequence non contrast-enhanced MRI of the left lower extremity was accomplished. INDICATION: Left groin pain. COMPARISON: There are no prior MRI examinations available for comparison. FINDINGS: The plain film examination of the pelvis performed on 08/12/2019 failed to show any sign of an acute abnormality. On this exam there is no abnormal signal arising from the osseous structures to suggest bone edema or a fracture. There is no sign of avascular necrosis of the femoral heads either. The hip joints show only mild degenerative disease. The sacroiliac joints are also generally unremarkable as far as degenerative disease. Incidental note is made of degenerative disc and bone disease at L3-L4 and L4-L5. There is no pelvic mass or free fluid collection evident. The uterus and urinary bladder are grossly unremarkable. However on the axial T2 fat saturated series there is increased signal along the medial aspect of the obturator musculature on the left. This does suggest edema/inflammation. There is no sign of a muscular hematoma and the muscles themselves seem to be intact for the most part. IMPRESSION: 1. There is no evidence for an acute bony abnormality. There is no sign of avascular necrosis of the femoral heads either. 2. The abnormal signal involving the medial aspect of the obturator musculature on the left is most likely due to edema/inflammation from a recent injury. There is no mass or hematoma identified. 3. There is no acute abnormality identified otherwise. Dictated by: Dictated on workstation # [id number]
== END | disposition home or self-care (01) ==
LOC: OCC 08:34
PROVIDERS: ATTEND Nurse Practitioner Family
CPT/HCPCS: 73721

== ENCOUNTER 2019-11-12 12:59 | Outpatient (RCR) | payer OTHER | END 2019-11-17 | disposition home or self-care (01) | PROVIDERS: ATTEND Nurse Practitioner Family | DX: S73.192A Other sprain of left hip, initial encounter (principal); X50.0XXA Overexertion from strenuous movement or load, initial encounter; Y99.0 Civilian activity done for income or pay ==

== ENCOUNTER 2019-11-25 09:13 | Outpatient (RCR) | payer OTHER | END 2019-11-25 09:47 | disposition home or self-care (01) | PROVIDERS: ATTEND Nurse Practitioner Family | DX: S76.012A Strain of muscle, fascia and tendon of left hip, initial encounter (principal); I10 Essential (primary) hypertension; X50.0XXA Overexertion from strenuous movement or load, initial encounter; Z98.890 Other specified postprocedural states ==

== ENCOUNTER → 2020-04-23 | Outpatient (CLI) | payer OTHER ==
--- NOTE | 2020-04-23 17:27 | Diagnostic Imaging Report ---
INDICATION: Bilateral screening. At this time there are no current complaints. EXAMINATION: Left breast digital diagnostic mammogram with CAD. 3D tomographic images were obtained and reviewed. The current study was also evaluated with a Computer Aided Detection (CAD) system. COMPARISON: This study was compared to the prior exams of 08/23/2018, 08/21/2017, 08/18/2016 and 06/04/2015. FINDINGS: There are scattered fibronodular densities in both breasts which could obscure a lesion. In the interval since the prior exam, a 7 mm asymmetry has developed in the mid medial aspect of the left breast approximately 5-6 cm from the nipple on the craniocaudad view. There is no corresponding abnormality identified with certainty on the MLO view. This could be secondary to fibroglandular tissue alone. Even so, I would recommend that a compression view of this area be obtained in the CC projection as well as rolled views and a true lateral view. Ultrasound should be performed as well. The right breast is unchanged. IMPRESSION: Additional mammographic views and ultrasound of the left breast are recommended for further study. ACR BI-RADS Category 0: Incomplete. (Needs additional imaging evaluation). Result letter will be mailed to the patient. Note: At least 10% of breast cancer is not imaged by mammography. Dictated by: Dictated on workstation # [id number]
== END ==
LOC: RAD 14:35
PROVIDERS: ATTEND Obstetrics & Gynecology
DX: Z12.31 Encounter for screening mammogram for malignant neoplasm of breast (principal)
CPT/HCPCS: 77063; 77067

== ENCOUNTER → 2020-05-01 | Outpatient (CLI) | payer OTHER ==
--- NOTE | 2020-05-01 14:20 | Diagnostic Imaging Report ---
INDICATION: Left breast density. Patient presents for additional views. Correlation is made with screening study from 04/23/2020. Unilateral left 2-D and 3-D diagnostic mammography was performed. This included spot compression CC, rolled CC as well as conventional 90 degree lateral views. Additional views confirm the presence of a slightly lobulated lesion in the upper inner left breast proximal 4 cm from the nipple. Further evaluation with ultrasound is recommended. No suspicious microcalcifications are seen. IMPRESSION: BI-RADS 0 Slightly lobulated density upper inner left breast 4 cm from the nipple. Further evaluation with ultrasound is recommended and will be performed today. ACR BI-RADS Category 0: Incomplete. (Needs additional imaging evaluation). Result letter will be mailed to the patient. Note: At least 10% of breast cancer is not imaged by mammography. Dictated by: Dictated on workstation # [id number]
--- NOTE | 2020-05-01 17:07 | Diagnostic Imaging Report ---
INDICATION: Left breast density. CORRELATION is made with diagnostic mammogram earlier the same day and screening mammogram from 04/23/2020. Sonographic interrogation of the upper inner left breast was performed. No sonographic abnormality is seen. No solid or cystic mass is identified. IMPRESSION: BI-RADS Category 3 No sonographic abnormality is identified. The density noted mammographically does have fairly benign features. Follow-up left mammogram in 6 months is recommended to show continued stability. ACR BI-RADS Category 3: Probably benign findings. Result letter will be mailed to the patient. Note: At least 10% of breast cancer is not imaged by mammography. Dictated by: Dictated on workstation # [id number]
== END ==
LOC: RAD 13:50
DX: R92.8 Other abnormal and inconclusive findings on diagnostic imaging of breast (principal)
CPT/HCPCS: 76642; 77065; G0279

== ENCOUNTER → 2020-05-08 | Outpatient (CLI) | payer OTHER ==
--- NOTE | 2020-05-08 10:17 | Diagnostic Imaging Report ---
PROCEDURE: US Renal Bilateral. TECHNIQUE: Multiple real-time grayscale images were obtained over the kidneys in various projections bilaterally. INDICATION: Kidney calculus. FINDINGS: Right kidney measures 10.9 x 5.5 x 4.5 cm and the left kidney measures 7.4 x 3.4 x 3.1 cm. Left kidney does show some cortical thinning and ehkk-ih-eowatuyc atrophy. The right kidney demonstrates normal cortical thickness and echogenicity. No definite calculi are identified. There is no hydronephrosis. Bladder is unremarkable. Right ureteral jet was visualized. Left ureteral jet was not well-visualized. IMPRESSION: Small left kidney with cortical thinning. No calculi or hydronephrosis is detected. Dictated by: Dictated on workstation # [id number]
== END ==
LOC: RAD 09:00
DX: N20.0 Calculus of kidney (principal); N27.0 Small kidney, unilateral
CPT/HCPCS: 76770

== ENCOUNTER → 2020-05-25 | Outpatient (CLI) | payer OTHER ==
[2020-05-25 10:37] LABS: MEAN PLATELET VOLUME 8.9 fL (9.0-12.2); WHITE BLOOD COUNT 8.3 10^3/uL (4.3-11.0)
[2020-05-25 11:10] LABS: ALBUMIN 4.2 GM/DL (3.2-4.5); BILIRUBIN,TOTAL 0.6 MG/DL (0.1-1.0); CALCIUM 9.2 MG/DL (8.5-10.1); CREATININE SERUM 1.3 MG/DL (0.60-1.30); POTASSIUM 3.8 MMOL/L (3.6-5.0); TOTAL PROTEIN 7.5 GM/DL (6.4-8.2)
== END ==
LOC: LAB 10:16
DX: R53.83 Other fatigue (principal)
CPT/HCPCS: 36415; 80053; 84443; 85027

== ENCOUNTER → 2020-09-01 | Outpatient (CLI) | payer OTHER ==
[2020-09-01 07:23] LABS: MEAN PLATELET VOLUME 9.1 fL (9.0-12.2); WHITE BLOOD COUNT 7.8 10^3/uL (4.3-11.0)
[2020-09-01 07:40] LABS: ALBUMIN 4.3 GM/DL (3.2-4.5); CALCIUM 9.8 MG/DL (8.5-10.1); CREATININE SERUM 1.49 MG/DL (0.60-1.30); PHOSPHORUS 4.4 MG/DL (2.3-4.7); POTASSIUM 4.1 MMOL/L (3.6-5.0)
[2020-09-01 09:20] LABS: BILIRUBIN,URINE NEGATIVE (NEGATIVE); CLARITY,URINE CLEAR; COLOR,URINE YELLOW; GLUCOSE, URINE (UA) NEGATIVE (NEGATIVE); KETONES,URINE NEGATIVE (NEGATIVE); LEUKOCYTE ESTERASE ,URINE TRACE (NEGATIVE); NITRITE,URINE NEGATIVE (NEGATIVE); PROTEIN,URINE NEGATIVE (NEGATIVE)
[2020-09-01 09:46] LABS: BACTERIA,URINE FEW /HPF; RENAL EPITHELIAL CELLS,URINE 0-2 /HPF
== END ==
LOC: LAB 06:58
DX: N18.9 Chronic kidney disease, unspecified (principal)
CPT/HCPCS: 36415; 80069; 81000; 85027; 87077; 87088

== ENCOUNTER → 2020-09-14 | Outpatient (CLI) | payer OTHER | LOC: LAB 15:13 | PROVIDERS: ATTEND Nurse Practitioner | DX: N20.0 Calculus of kidney (principal) ==

== ENCOUNTER → 2020-11-19 | Outpatient (CLI) | payer OTHER ==
--- NOTE | 2020-11-19 15:17 | Diagnostic Imaging Report ---
INDICATION: Six-month followup left breast nodule. Correlation is made with prior mammogram 04/23/2020. Unilateral left 2-D and 3-D diagnostic mammography was performed with CAD. The lobulated nodular density in the upper and slightly inner left breast 4-5 cm from the nipple appears to be stable. No new mass is identified. No malignant appearing microcalcifications are seen. There are benign calcifications present. Left axilla is unremarkable. IMPRESSION: BI-RADS 0 Stable lobulated nodule in the upper inner left breast when compared with prior exam from 04/23/2020. Further evaluation with ultrasound will be attempted today. ACR BI-RADS Category 0: Incomplete. (Needs additional imaging evaluation). Result letter will be mailed to the patient. Note: At least 10% of breast cancer is not imaged by mammography. Dictated by: Dictated on workstation # [id number]
--- NOTE | 2020-11-19 15:25 | Diagnostic Imaging Report ---
INDICATION: Left breast nodule. COMPARISON: Correlation is made with diagnostic mammogram from earlier the same day. Sonographic interrogation of the upper and inner aspect of the left breast was performed. There is a vague hypoechoic nodule at the 10:00 location, approximately 4 cm from the nipple, measuring 6 mm x 6 mm x 3 mm. This has the appearance of an intraparenchymal lymph node. This likely accounts for the mammographic density. No other mass is seen. IMPRESSION: Probable intraparenchymal lymph node at the 10:00 location of the left breast, 4 cm from the nipple. This likely accounts for the mammographic density. Patient may return to routine annual screening mammography. ACR BI-RADS Category 2: Benign findings. Result letter will be mailed to the patient. Note: At least 10% of breast cancer is not imaged by mammography. Dictated by: Dictated on workstation # [id number]
== END ==
LOC: RAD 14:15
PROVIDERS: ATTEND Obstetrics & Gynecology
DX: N63.22 Unspecified lump in the left breast, upper inner quadrant (principal)
CPT/HCPCS: 76642; 77065; G0279

== ENCOUNTER 2021-03-03 11:50 | Outpatient (RCR) | payer OTHER ==
[2021-03-02 12:35] LABS: BASOPHILS # (AUTO) 0.1 10^3/uL (0.0-0.1); BASOPHILS % (AUTO) 1 % (0-10); EOSINOPHILS % (AUTO) 0 % (0-10); HEMATOCRIT 46 % (35-52); LYMPHOCYTES # (AUTO) 2.7 10^3/uL (1.0-4.0); LYMPHOCYTES % (AUTO) 29 % (12-44); MEAN CORPUSCULAR HEMOGLOBIN 31 pg (25-34); MEAN CORPUSCULAR HGB CONC 33 g/dL (32-36); MEAN CORPUSCULAR VOLUME 95 fL (80-99); MEAN PLATELET VOLUME 8.9 fL (9.0-12.2); MONOCYTES # (AUTO) 0.7 10^3/uL (0.0-1.0); MONOCYTES % (AUTO) 7 % (0-12); NEUTROPHILS # (AUTO) 6.1 10^3/uL (1.8-7.8); NEUTROPHILS % (AUTO) 63 % (42-75); PLATELET COUNT 252 10^3/uL (130-400); WHITE BLOOD COUNT 9.6 10^3/uL (4.3-11.0)
[2021-03-02 13:03] LABS: ALBUMIN 4.2 GM/DL (3.2-4.5); CALCIUM 9.7 MG/DL (8.5-10.1); CREATININE SERUM 1.28 MG/DL (0.60-1.30); PHOSPHORUS 3.1 MG/DL (2.3-4.7); POTASSIUM 3.8 MMOL/L (3.6-5.0); URIC ACID 7.1 MG/DL (2.6-7.2)
[2021-03-03 12:02] LABS: BILIRUBIN,URINE NEGATIVE (NEGATIVE); CLARITY,URINE CLEAR; COLOR,URINE YELLOW; GLUCOSE, URINE (UA) NEGATIVE (NEGATIVE); KETONES,URINE NEGATIVE (NEGATIVE); LEUKOCYTE ESTERASE ,URINE NEGATIVE (NEGATIVE); NITRITE,URINE NEGATIVE (NEGATIVE); PROTEIN,URINE NEGATIVE (NEGATIVE)
[2021-03-03 12:17] LABS: BACTERIA,URINE NEGATIVE /HPF; SQUAMOUS EPITHELIAL CELL,UR 0-2 /HPF; WBC,URINE 0-2 /HPF
== END 2021-05-31 | disposition home or self-care (01) ==
LOC: LAB 11:50
PROVIDERS: ATTEND Nurse Practitioner
DX: N18.32 Chronic kidney disease, stage 3b (principal)
CPT/HCPCS: 36415; 80069; 81000; 82043; 82306; 83735; 83970; 84550; 85025

== ENCOUNTER 2021-09-03 06:14 | Emergency (ER) | payer OTHER ==
[~2021-09-03] VITALS: Ht 160 cm; Wt 77.1 kg
--- NOTE | 2021-09-03 06:59 | ED Abdominal Pain ---
General Chief Complaint: Abdominal/GI Problems Stated Complaint: N/V/DEHYDRATION Source of Information: Patient Exam Limitations: No Limitations (EMMETT GARDNER MED STUDENT) History of Present Illness Date Seen by Provider: Sep 03, 2021 Time Seen by Provider: 06:45 Initial Comments Patient is a 61 year old female whit pmh of HTN, CKD stage 3, UC post total colectomy 1996 who presents to the ED with complaints of nausea, vomiting, and crampy abdominal pain since midnight today. Reports that she woke up at midnight and had severe crampy abdominal pain associated with 2 episodes of vomiting 2-3 times each of nonbloody nonbilious emesis. States she took 8mg zofran without relief of the nausea. Did not take anything for the abdominal pain. Reports the abdominal pain to be intermittent and crampy associated with the nausea and vomiting then abates. Currently not having abdominal pain but reports feeling weak, dehydrated, and nauseous. Reports that these symptoms in the past usually resolve with phenergan and IVF's. No recent sick contacts. Is covid vaccinated and boosted. Timing/Duration: 4-6 Hours Severity/Quality: Moderate, Cramping Location: Generalized Abdomen Radiation: No Radiation Activities at Onset: Sleeping Associated Symptoms: No Back Pain, No Chest Pain, No Fever/Chills, No Headache; Nausea/Vomiting (EMMETT GARDNER MED STUDENT) Initial Comments 61yo female with history of UC - s/p total colectomy years ago. woke with acute n/v last evening. Non black, non bloody. normal stools for her. No fevers, chills..SHe states she get periodic episodes of this - last one 3 years ago. Took 8mg zofran at home without relief. Concerned about becoming dehydrated to t he point of needing admission. Not lightheaded or dizzy with standing. No CP or SOB. No urinary complaints - h/o stage 3 CKD. All other ROS reviewed and negative except as stated. (ROBER NOVOA MD) Allergies and Home Medications Allergies Coded Allergies: doxycycline (Verified Allergy, Unknown, 09/03/21) meperidine (Verified Allergy, Unknown, 10/21/15) nifedipine (Verified Allergy, Unknown, 10/13/14) Patient Home Medication List Cephalexin (Keflex) 500 Mg Capsule, 500 MG PO QID Prescribed by: NILDA GUIDO on 12/06/17 234 Hydrocodone/Acetaminophen (Lorcet 5-325 mg Tablet) 1 Each Tablet, 1-2 EACH PO Q4H PRN for PAIN Prescribed by: MELLISA CHASE on 11/18/15 1228 Nitrofurantoin Macrocrystal (Macrodantin) 100 Mg Capsule, 100 MG PO BID WITH MEALS Prescribed by: MELLISA CHASE on 11/18/15 122 Olmesartan Medoxomil (Benicar) 20 Mg Tablet, 10 MG PO DAILY, (Reported) Entered as Reported by: LAURA TREJO on 04/08/152049 Promethazine HCl (Promethazine Tablet) 25 Mg Tablet, 12.5-25 MG PO Q6H PRN for NAUSEA/VOMITING Prescribed by: NILDA GUIDO on 12/06/172348 Tamsulosin HCl (Flomax) 0.4 Mg Cap, 0.4 MG PO DAILY Prescribed by: MELLISA CHASE on 11/18/15 1228 Review of Systems Review of Systems Constitutional: No chills, No diaphoresis, No dizziness, No fever; malaise, weakness EENTM: No Symptoms Reported; No Blurred Vision, No Double Vision Respiratory: No Symptoms Reported; Denies Cough, Denies Shortness of Air Cardiovascular: No Symptoms Reported; Denies Chest Pain, Denies Edema, Denies Lightheadedness Gastrointestinal: See HPI, Abdominal Pain; Denies Constipated, Denies Diarrhea; Nausea, Vomiting Genitourinary: No Symptoms Reported; Denies Burning, Denies Discharge, Denies Frequency Musculoskeletal: no symptoms reported; No back pain, No joint pain Skin: no symptoms reported; No change in color, No change in hair/nails Psychiatric/Neurological: No Symptoms Reported; Denies Anxiety, Denies Depressed, Denies Headache Endocrine: No Symptoms Reported; Denies Excessive Sweating, Denies Flushing Hematologic/Lymphatic: No Symptoms Reported; Denies Easy Bleeding, Denies Easy Bruising (EMMETT GARDNER MED STUDENT) All Other Systems Reviewed Negative Unless Noted: Yes (EMMETT GARDNER STUDENT) Past Ntthsgx-Kzcqgd-Mpreiu Hx Patient Social History Tobacco Use?: No Smoking Status: Never a Smoker Smokeless Tobacco Frequency: Never a User Use of E-Cig and/or Vaping dev: No Use of E-Cig and/or Vaping Ferdinand: Never a User Substance use?: No Alcohol Use?: No (EMMETT GARDNER [employer] STUDENT) Immunizations Up To Date Tetanus Booster (TDap): More than 5yrs PED Vaccines UTD: Yes First/Initial COVID19 Vaccinat: pfizer x 3 (EMMETT GARDNER [employer] STUDENT) Seasonal Allergies Seasonal Allergies: No (EMMETT GARDNER [employer] REY) Past Medical History Surgeries: Yes Abdominal (Total colectomy 1996 due to UC), Gallbladder (cholecystectomy), Orthopedic Respiratory: No Currently Using CPAP: No Currently Using BIPAP: No Cardiac: Yes Hypertension Neurological: No Reproductive Disorders: No Female Reproductive Disorders: Denies Sexually Transmitted Disease: No HIV/AIDS: No Genitourinary: Yes Kidney Stones, Renal Failure (CKD stage 3), UTI-Chronic Gastrointestinal: Yes Colitis (UC, s/p total colectomy 1996) Musculoskeletal: No Endocrine: No HEENT: No Loss of Vision: Denies Hearing Impairment: Denies Cancer: Yes Skin Did You Recieve Any Treatments: Yes What Type of Treatment Did You: Surgical Intervention (surgical excision of skin cancer lesions) Psychosocial: No Integumentary: No Blood Disorders: No (EMMETT GARDNER [employer] STUDENT) Family Medical History Cardiovascular disease (MOM AND DAD0.) Hypercholesterolemia (MOM) Hypertension (MOM, SISTER, BROTHER) Myocardial infarction (MOM AND DAD) No Family History of: AIDS Abdominal aortic aneurysm Tyler's disease Alcoholism Alzheimer's disease Aphasia Arthritis Asthma Cancer of mouth Cataracts Colon cancer Completed stroke Congenital disease Congenital heart disease Coronary thrombosis Cystic fibrosis Deafness or hearing loss Dementia Diabetes mellitus Drug abuse Dysphasia Fibrocystic disease of breast Gastroenteritis Glaucoma Headache disorder Infertility Kidney disease Neoplasm Not obtainable due to adoption Osteoporosis Parkinson's disease Prostate cancer Psychosocial problem Respiratory disorder Seizure disorder Severe allergy Thyroid disease Tuberculosis Visual disorder CAD Over 55 Years Old, Hypertension (EMMETT GARDNER [employer] STUDENT) Physical Exam Vital Signs Vital Signs - First Documented 09/03/21 06:39 Temp 37.2 Pulse 109 Resp 16 B/P (MAP) 147/94 (111) Pulse Ox 96 O2 Delivery Room Air (ROBER NOVOA MD) Vital Signs Capillary Refill : (EMMETT GARDNER MED STUDENT) Height/Weight/BMI Height: 5'2.00" Weight: 155lbs. 0.2oz. 70.446017ha; 26.62 BMI Method:Stated General Appearance: WD/WN, no apparent distress HEENT: PERRL/EOMI, pharynx normal Neck: non-tender, full range of motion Respiratory: chest non-tender, lungs clear, normal breath sounds, no respiratory distress Cardiovascular: normal peripheral pulses, no edema, tachycardia Peripheral Pulses: 2+ Radial Pulses (R), 2+ Radial Pulses (L) Gastrointestinal: normal bowel sounds, soft; No distended; tenderness (Diffuse) Rectal: deferred Extremities: normal range of motion, non-tender, no pedal edema, no calf tend erness Back: normal inspection, no vertebral tenderness Neurologic/Psychiatric: no motor/sensory deficits, alert, normal mood/affect, oriented x 3 Skin: normal color, warm/dry, other (Multiple scars on abdomen s/p total colectomy and cholecystectomy surgeries) Lymphatic: no adenopathy (Head and Neck) (EMMETT GARDNER MED STUDENT) HEENT: other (dry oral mucosa) Neck: normal inspection Respiratory: lungs clear, normal breath sounds, no respiratory distress Cardiovascular: regular rate, rhythm Gastrointestinal: normal bowel sounds, non tender, soft Extremities: normal range of motion, non-tender Neurologic/Psychiatric: alert, normal mood/affect, oriented x 3 Skin: normal color, warm/dry (ROBER NOVOA MD) Progress/Results/Core Measures Results/Orders Lab Results Laboratory Tests Test 09/03/21 07:53 Range/Units Sodium Level 139 135-145 MMOL/L Potassium Level 4.7 3.6-5.0 MMOL/L Chloride Level 109 H 98-107 MMOL/L Carbon Dioxide Level 16 L 21-32 MMOL/L Anion Gap 14 5-14 MMOL/L Blood Urea Nitrogen 20 H 7-18 MG/DL Creatinine 1.29 0.60-1.30 MG/DL Estimat Glomerular Filtration Rate 47 BUN/Creatinine Ratio 16 Glucose Level 105 70-105 MG/DL Calcium Level 9.9 8.5-10.1 MG/DL (ROBER NOVOA MD) My Orders Orders - ROBER NOVOA MD Ed Iv/Invasive Line Start (09/03/21 07:07) Basic Metabolic Panel (09/03/21 07:07) Ns Iv 1000 Ml (Sodium Chloride 0.9%) (09/03/21 07:15) Promethazine Injection (Phenergan Injec (09/03/21 07:15) Ns Iv 1000 Ml (Sodium Chloride 0.9%) (09/03/21 08:30) Promethazine Injection (Phenergan Injec (09/03/21 09:15) (ROEBR NOVOA MD) Medications Given in ED Current Medications Medications Dose Ordered Sig/Jai Route Start Time Stop Time Status Last Admin Dose Admin Promethazine HCl 6.25 mg ONCE ONCE IVP 09/03/21 07:15 09/03/21 07:16 DC 09/03/21 07:49 6.25 MG Promethazine HCl 12.5 mg ONCE ONCE IVP 09/03/21 09:15 09/03/21 09:16 DC 09/03/21 09:43 12.5 MG (ROBER NOVOA MD) Vital Signs/I&O 09/03/21 06:39 Temp 37.2 Pulse 109 Resp 16 B/P (MAP) 147/94 (111) Pulse Ox 96 O2 Delivery Room Air (ROBER NOVOA MD) Progress Progress Note : Time: 11:09 Progress Note Multiple re-evaluations while she has gotten fluids and phenergan IV. She has had steady improvement in her nausea. BMP reviewed - normal electrolytes, CO2 is slightly depressed at 16 - shes had a total of 2 L NS. No fevers. exam unremarkable. No crampy abdominal pain unless she is vomiting/heaving. Ready for discharge. Would like a Rx for phenergan. Return precautions discussed. (ROBER NOVOA MD) Departure Impression Primary Impression: Acute nausea with nonbilious vomiting Disposition: 01 HOME, SELF-CARE Condition: Stable Departure-Patient Inst. Decision time for Depature: 11:11 (ROBER NOVOA MD) Referrals: JANELL WAYNE MD (PCP/Family) Primary Care Physician Patient Instructions: Nausea and Vomiting, Adult Add. Discharge Instructions: Push oral fluids to stay well-hydrated, start out with clear liquids over the next 6 to 12 hours. Slowly advance her diet as tolerated Continue your home daily medications. We have given you a prescription for Phenergan syrup. The dosage is 6.25 mg/tsp. You can have 1 teaspoon every 6-8 hours as needed for nausea. Please come back to the emergency department for reevaluation if you develop worsening abdominal pain especially with fever, persistent nausea and vomiting or any other emergent, concerning symptoms. Follow-up with your primary care physician. Scripts Promethazine HCl (Promethazine HCl) 6.25 Mg/5 Ml Syrup 6.25 MG PO Q6H PRN for nausea and vomiting, #60 ML Prov: ROBER NOVOA MD 09/03/21 Verification and Attestation of Medical Student E/M Service A medical student performed and documented this service in my presence. I reviewed and verified all information documented by the medical student and made modifications to such information, when appropriate. I personally performed the physical exam and medical decision making. Rober Novoa, Sep 03, 2021,11:16 (ROBER NOVOA MD) Copy Copies To 1: JANELL WAYNE MD, [employer] STUDENT Sep 03, 2021 06:59 ROBER NOVOA MD Sep 03, 2021 11:14
[2021-09-03] MEDS ORDERED: NS IV 1000 ML 1,000 ML IV SCH ×2 (07:15→08:30)
[2021-09-03] MEDS ORDERED: PROMETHAZINE INJ 25 MG/ML (PHENERGAN) AMP IVP ONE ×2 (07:15→09:15)
[2021-09-03 08:20] LABS: POTASSIUM 4.7 MMOL/L (3.6-5.0)
[2021-09-03 08:21] LABS: CALCIUM 9.9 MG/DL (8.5-10.1)
[2021-09-03 08:25] LABS: CREATININE SERUM 1.29 MG/DL (0.60-1.30)
[2021-09-03] MEDS ORDERED: PROM6.2516 PO (11:12)
[2021-09-03 12:00] VITALS: BP 134/74
== END 2021-09-03 12:00 | disposition home or self-care (01) ==
LOC: EDUNIT# 06:14 → ER 06:18
DX: R11.2 Nausea with vomiting, unspecified (principal); R10.84 Generalized abdominal pain; Z90.49 Acquired absence of other specified parts of digestive tract
CPT/HCPCS: 36415; 80048

== ENCOUNTER → 2021-09-27 | Outpatient (CLI) | payer OTHER ==
[~2021-09-27] MED LIST changes: +PROM6.2516 PO
[2021-09-27 13:12] LABS: BASOPHILS # (AUTO) 0.1 10^3/uL (0.0-0.1); BASOPHILS % (AUTO) 1 % (0-10); EOSINOPHILS % (AUTO) 0 % (0-10); HEMATOCRIT 43 % (35-52); HEMOGLOBIN 14.1 g/dL (11.5-16.0); LYMPHOCYTES # (AUTO) 2.3 10^3/uL (1.0-4.0); LYMPHOCYTES % (AUTO) 27 % (12-44); MEAN CORPUSCULAR HEMOGLOBIN 30 pg (25-34); MEAN CORPUSCULAR HGB CONC 33 g/dL (32-36); MEAN CORPUSCULAR VOLUME 93 fL (80-99); MEAN PLATELET VOLUME 9.1 fL (9.0-12.2); MONOCYTES # (AUTO) 0.6 10^3/uL (0.0-1.0); MONOCYTES % (AUTO) 7 % (0-12); NEUTROPHILS # (AUTO) 5.5 10^3/uL (1.8-7.8); NEUTROPHILS % (AUTO) 65 % (42-75); PLATELET COUNT 238 10^3/uL (130-400); WHITE BLOOD COUNT 8.4 10^3/uL (4.3-11.0)
[2021-09-27 13:16] LABS: BILIRUBIN,URINE NEGATIVE (NEGATIVE); CLARITY,URINE CLEAR; COLOR,URINE YELLOW; GLUCOSE, URINE (UA) NEGATIVE (NEGATIVE); KETONES,URINE NEGATIVE (NEGATIVE); LEUKOCYTE ESTERASE ,URINE NEGATIVE (NEGATIVE); NITRITE,URINE NEGATIVE (NEGATIVE); PROTEIN,URINE NEGATIVE (NEGATIVE)
[2021-09-27 13:19] LABS: ALBUMIN 3.9 GM/DL (3.2-4.5)
[2021-09-27 13:20] LABS: POTASSIUM 3.8 MMOL/L (3.6-5.0)
[2021-09-27 13:21] LABS: CALCIUM 9.5 MG/DL (8.5-10.1)
[2021-09-27 13:25] LABS: CREATININE SERUM 1.21 MG/DL (0.60-1.30); PHOSPHORUS 3.4 MG/DL (2.3-4.7)
[2021-09-27 13:28] LABS: URIC ACID 7.3 MG/DL (2.6-7.2)
[2021-09-27 13:32] LABS: BACTERIA,URINE NEGATIVE /HPF; RBC,URINE 0-2 /HPF; WBC,URINE RARE /HPF
[2021-09-27 13:37] LABS: URINE CREATININE FOR RATIO 28 MG/DL (30-125); URINE PROTEIN FOR RATIO ONLY < 6 MG/DL (6-12)
== END ==
LOC: LAB 12:43
PROVIDERS: ATTEND Nurse Practitioner
DX: N18.31 Chronic kidney disease, stage 3a (principal)
CPT/HCPCS: 36415; 80069; 81000; 82306; 82570; 83970; 84156; 84550; 85025

== ENCOUNTER → 2021-12-06 | Outpatient (CLI) | payer OTHER ==
--- NOTE | 2021-12-07 13:09 | Diagnostic Imaging Report ---
INDICATION: Routine screening. COMPARISON: 04/23/2020 and 08/23/2018. TECHNIQUE: 2D and 3D bilateral screening mammography was performed with CAD. FINDINGS: Scattered fibroglandular densities are identified bilaterally. The slightly nodular parenchymal pattern appears stable. No spiculated mass or malignant-appearing microcalcifications are seen. There are benign calcifications present. The axillae are unremarkable. IMPRESSION: No mammographic features suspicious for malignancy are identified. ACR BI-RADS Category 2: Benign findings. Result letter will be mailed to the patient. Note: At least 10% of breast cancer is not imaged by mammography. Dictated by: Dictated on workstation # [id number]
== END ==
LOC: RAD 15:15
PROVIDERS: ATTEND Obstetrics & Gynecology
DX: Z12.31 Encounter for screening mammogram for malignant neoplasm of breast (principal)
CPT/HCPCS: 77063; 77067

== ENCOUNTER → 2022-04-04 | Outpatient (CLI) | payer OTHER ==
[~2022-04-04] MED LIST changes: -OLME20TA21 PO; +OLME20TA75 PO
[2022-04-04 12:44] LABS: HEMATOCRIT 42 % (35-52); HEMOGLOBIN 14.3 g/dL (11.5-16.0); MEAN CORPUSCULAR HEMOGLOBIN 31 pg (25-34); MEAN CORPUSCULAR HGB CONC 34 g/dL (32-36); MEAN CORPUSCULAR VOLUME 92 fL (80-99); MEAN PLATELET VOLUME 8.8 fL (9.0-12.2); PLATELET COUNT 240 10^3/uL (130-400); WHITE BLOOD COUNT 8.5 10^3/uL (4.3-11.0)
[2022-04-04 12:46] LABS: BILIRUBIN,URINE NEGATIVE (NEGATIVE); CLARITY,URINE CLEAR; COLOR,URINE YELLOW; GLUCOSE, URINE (UA) NEGATIVE (NEGATIVE); KETONES,URINE NEGATIVE (NEGATIVE); LEUKOCYTE ESTERASE ,URINE NEGATIVE (NEGATIVE); NITRITE,URINE NEGATIVE (NEGATIVE); PH,URINE 6.5 (5-9); PROTEIN,URINE TRACE (NEGATIVE)
[2022-04-04 12:54] LABS: BACTERIA,URINE NEGATIVE /HPF; RBC,URINE 25-50 /HPF; SQUAMOUS EPITHELIAL CELL,UR 0-2 /HPF
[2022-04-04 12:56] LABS: CALCIUM 9.5 MG/DL (8.5-10.1)
[2022-04-04 13:00] LABS: PHOSPHORUS 3.4 MG/DL (2.3-4.7)
[2022-04-04 13:01] LABS: CREATININE SERUM 1.39 MG/DL (0.60-1.30)
[2022-04-04 13:03] LABS: URIC ACID 8.3 MG/DL (2.6-7.2)
== END ==
LOC: LAB 12:10
PROVIDERS: ATTEND Nurse Practitioner
DX: E72.53 Primary hyperoxaluria (principal)
CPT/HCPCS: 36415; 80069; 81000; 82306; 82570; 83970; 84156; 84550; 85027

== ENCOUNTER → 2022-11-02 | Outpatient (CLI) | payer OTHER ==
[2022-11-02 15:15] LABS: BASOPHILS # (AUTO) 0.1 10^3/uL (0.0-0.1); BASOPHILS % (AUTO) 1 % (0-10); EOSINOPHILS % (AUTO) 0 % (0-10); HEMATOCRIT 40 % (35-52); HEMOGLOBIN 13.5 g/dL (11.5-16.0); LYMPHOCYTES % (AUTO) 30 % (12-44); MEAN CORPUSCULAR HEMOGLOBIN 31 pg (25-34); MEAN CORPUSCULAR HGB CONC 33 g/dL (32-36); MEAN CORPUSCULAR VOLUME 93 fL (80-99); MEAN PLATELET VOLUME 8.6 fL (9.0-12.2); MONOCYTES # (AUTO) 0.8 X 10^3 (0.0-1.0); MONOCYTES % (AUTO) 9 % (0-12); NEUTROPHILS # (AUTO) 5.9 X 10^3 (1.8-7.8); NEUTROPHILS % (AUTO) 61 % (42-75); PLATELET COUNT 252 10^3/uL (130-400); WHITE BLOOD COUNT 9.7 10^3/uL (4.3-11.0)
[2022-11-02 15:38] LABS: CALCIUM 8.6 MG/DL (8.5-10.1); CREATININE SERUM 1.42 MG/DL (0.60-1.30); POTASSIUM 4.1 MMOL/L (3.6-5.0); URIC ACID 7.8 MG/DL (2.6-7.2)
== END ==
LOC: LAB 14:48
PROVIDERS: ATTEND Nurse Practitioner Family
DX: I12.9 Hypertensive chronic kidney disease with stage 1 through stage 4 chronic kidney disease, or unspecified chronic kidney disease (principal); N18.32 Chronic kidney disease, stage 3b
CPT/HCPCS: 36415; 80069; 82306; 82570; 83970; 84156; 84550; 85025

== ENCOUNTER → 2023-01-09 | Outpatient (CLI) | payer OTHER ==
--- NOTE | 2023-01-09 18:29 | Diagnostic Imaging Report ---
INDICATION: Injury with pain 3 views left ribs performed FINDINGS: No lung contusion, pneumothorax or hemothorax. No free air beneath the left diaphragm. No left rib fracture deformity, suspicious lucency or bony destruction. No focal pleural hematoma. IMPRESSION: Unremarkable left rib series. Dictated by: Dictated on workstation # [id number]
== END ==
LOC: RAD 10:58
PROVIDERS: ATTEND Family Medicine
DX: R07.81 Pleurodynia (principal)
CPT/HCPCS: 71100

== ENCOUNTER → 2023-02-14 | Outpatient (CLI) | payer OTHER ==
--- NOTE | 2023-02-14 20:49 | Diagnostic Imaging Report ---
Indication: Routine screening. Comparison is made with prior mammograms 12/06/2021 and 04/23/2020. 2-D and 3-D bilateral screening mammography was performed with CAD. Scattered fibroglandular densities are identified bilaterally. The parenchymal pattern is stable. No mass or malignant-appearing microcalcifications are seen. There are benign calcifications. Axillae are unremarkable. IMPRESSION: BI-RADS Category 2 No mammographic features suspicious for malignancy are identified. ACR BI-RADS Category 2: Benign findings. Result letter will be mailed to the patient. Note: At least 10% of breast cancer is not imaged by mammography. Dictated by: Dictated on workstation # [id number]
== END ==
LOC: RAD 15:07
PROVIDERS: ATTEND Family Medicine
DX: Z12.31 Encounter for screening mammogram for malignant neoplasm of breast (principal)
CPT/HCPCS: 77063; 77067

== ENCOUNTER → 2023-04-26 | Outpatient (CLI) | payer OTHER ==
[2023-04-26 14:18] LABS: BASOPHILS # (AUTO) 0.1 10^3/uL (0.0-0.1); BASOPHILS % (AUTO) 1 % (0-10); EOSINOPHILS % (AUTO) 0 % (0-10); HEMATOCRIT 43 % (35-52); HEMOGLOBIN 14.1 g/dL (11.5-16.0); LYMPHOCYTES % (AUTO) 31 % (12-44); MEAN CORPUSCULAR HEMOGLOBIN 31 pg (25-34); MEAN CORPUSCULAR HGB CONC 33 g/dL (32-36); MEAN CORPUSCULAR VOLUME 92 fL (80-99); MEAN PLATELET VOLUME 10.1 fL (9.0-12.2); MONOCYTES # (AUTO) 0.8 10^3/uL (0.0-1.0); MONOCYTES % (AUTO) 8 % (0-12); NEUTROPHILS # (AUTO) 5.9 10^3/uL (1.8-7.8); NEUTROPHILS % (AUTO) 61 % (42-75); WHITE BLOOD COUNT 9.7 10^3/uL (4.3-11.0)
[2023-04-26 14:30] LABS: ALBUMIN 4.3 GM/DL (3.2-4.5)
[2023-04-26 14:31] LABS: POTASSIUM 3.7 MMOL/L (3.6-5.0)
[2023-04-26 14:32] LABS: CALCIUM 9.3 MG/DL (8.5-10.1)
[2023-04-26 14:36] LABS: CREATININE SERUM 1.4 MG/DL (0.60-1.30); PHOSPHORUS 3.4 MG/DL (2.3-4.7)
[2023-04-26 14:39] LABS: URIC ACID 7.5 MG/DL (2.6-7.2)
[2023-04-26 14:45] LABS: PLATELET COUNT 148 10^3/uL (130-400)
== END ==
LOC: LAB 13:52
PROVIDERS: ATTEND Nurse Practitioner Family
DX: I12.9 Hypertensive chronic kidney disease with stage 1 through stage 4 chronic kidney disease, or unspecified chronic kidney disease (principal); N18.32 Chronic kidney disease, stage 3b; E87.20 Acidosis, unspecified
CPT/HCPCS: 36415; 80069; 82306; 82570; 83970; 84156; 84550; 85025

== ENCOUNTER → 2023-05-23 | Outpatient (CLI) | payer OTHER ==
--- NOTE | 2023-05-23 16:21 | Diagnostic Imaging Report ---
PROCEDURE: US Renal Bilateral. TECHNIQUE: Multiple real-time grayscale images were obtained over the kidneys in various projections bilaterally. INDICATION: Chronic renal insufficiency COMPARISON: 05/08/2020 Kidneys are stable in appearance with the right measuring 11 x 5.3 x 5.2 cm and the left measuring 7.5 x 3.1 x 3.8 cm. No hydronephrosis or renal mass is identified. There is no perinephric fluid collection. Right ureteric jet is confirmed. Left ureteric jet was not identified. Otherwise, cursory images of the bladder are unremarkable. IMPRESSION: Stable volume loss in the left kidney. Otherwise, no acute renal abnormality is detected. Dictated by: Dictated on workstation # [id number]
== END ==
LOC: RAD 15:00
PROVIDERS: ATTEND Nurse Practitioner Family
DX: N20.0 Calculus of kidney (principal); N18.32 Chronic kidney disease, stage 3b; N28.9 Disorder of kidney and ureter, unspecified
CPT/HCPCS: 76770